=== PATIENT | male | born 2005 | race Caucasian/White ===

== ENCOUNTER 2023-08-12 12:01 | Outpatient (CLI) | payer MEDICAID, SELFPAY ==
--- NOTE | 2023-08-12 12:14 | XR_ITS ---
WS: [id number] Left foot, 3 views, 08/12/2023 Clinical Data: L FOOT PAIN Comparison: None. Findings: No fractures or dislocations are seen. No bone destruction or erosion is noted. The joint spaces and soft tissues are normal. Impression: Negative left foot.
--- NOTE | 2023-08-12 12:14 | XR_ITS ---
WS: [id number] Left ankle, AP and lateral views, 08/12/2023 Clinical Data: L ANKLE PAIN Comparison: Left ankle, 2003 Findings: No fractures or dislocations are seen. The ankle mortise is normal. The talus and calcaneus are unrem arkable. No soft tissue swelling over the medial or lateral malleolus is seen. Impression: Negative left ankle.
== END 2023-08-12 12:02 | disposition home or self-care (01) ==
PROVIDERS: Family Provider Pediatrics Adolescent Medicine; PCP Pediatrics Adolescent Medicine; Visit Provider Family Medicine
DX: M79.672 Pain in left foot (principal)
CPT/HCPCS: 73600; 73630

== ENCOUNTER → 2023-08-16 11:07 | Outpatient (BNVA) | payer MEDICAID, SELFPAY | PROVIDERS: Family Provider Pediatrics Adolescent Medicine; PCP Pediatrics Adolescent Medicine; Visit Provider Podiatrist Foot & Ankle Surgery | DX: S99.911A Unspecified injury of right ankle, initial encounter (principal); M93.271 Osteochondritis dissecans, right ankle and joints of right foot; M76.821 Posterior tibial tendinitis, right leg; W17.89XA Other fall from one level to another, initial encounter | CPT/HCPCS: 73610; 99203 ==

== ENCOUNTER 2023-10-06 16:39 | Outpatient (CLI) | payer MEDICAID, SELFPAY ==
--- NOTE | 2023-10-06 16:45 | MR_ITS ---
WS: [id number] EXAMINATION: MR ankle RT wo con* [id number] ORDER DATE: 10/06/2023 4:55 PM COMPARISON: None. HISTORY: preoperative planning on an OCD and evaluate PT Tendon CONTRAST: None. TECHNIQUE: Axial proton density fat sat, axial T1, sagittal proton density, sagittal STIR, coronal T2 fat sat, and coronal T1 sequences performed. FINDINGS: Osteochondral lesion involving the medial mid talar dome with associated surrounding edema. Osteochon dral lesion measures approximately 6.8 x 11.9 mm. Talar dome is otherwise normal in appearance. Osteo chondral lesion is similar to the prior radiograph. Distal Achilles is normal in appearance. Normal plantar fascia. Normal bone marrow signal in the calc aneus. Normal talonavicular and talocalcaneal articulation. Normal cuboid. Normal medial and lateral malleolus. Deltoid ligament appears intact. ATF appears intact. Normal bone marrow signal in the fifth metacarpal base. Normal navicular and cuneiforms. Normal cuboi d.Tendon split tear involving the peroneal brevis. Peroneal tendons are otherwise normal in appearanc e. Tenosynovitis involving the flexor compartment tendons tibialis posterior, flexor digitorum longus , and flexor hallucis longus. Normal extensor compartment tendons. IMPRESSION: 1. Osteochondral lesion involving the medial aspect of the mid talus with associated unstable fragme nt. Fragment measures approximately 6.8 x 11.9 mm with fluid interposed between the fragment and unde rlying bone. 2. Diffuse edema within the associated talus. 3. Small split tear peroneal brevis. 4. Tenosynovitis involving the flexor compartment tendons. 5. No other acute findings.
== END 2023-10-06 16:40 | disposition home or self-care (01) ==
LOC: RAD 16:39
PROVIDERS: Family Provider Pediatrics Adolescent Medicine; PCP Pediatrics Adolescent Medicine; Visit Provider Podiatrist Foot & Ankle Surgery
DX: M93.271 Osteochondritis dissecans, right ankle and joints of right foot (principal); M76.821 Posterior tibial tendinitis, right leg; R60.0 Localized edema; S86.311A Strain of muscle(s) and tendon(s) of peroneal muscle group at lower leg level, right leg, initial encounter; X58.XXXA Exposure to other specified factors, initial encounter
CPT/HCPCS: 73721

== ENCOUNTER → 2023-10-27 11:09 | Outpatient (BNVA) | payer MEDICAID, SELFPAY | PROVIDERS: PCP Family Medicine; Visit Provider Podiatrist Foot & Ankle Surgery | DX: S99.911D Unspecified injury of right ankle, subsequent encounter; M93.271 Osteochondritis dissecans, right ankle and joints of right foot; M76.821 Posterior tibial tendinitis, right leg; X58.XXXD Exposure to other specified factors, subsequent encounter | CPT/HCPCS: 99213 ==

== ENCOUNTER 2024-03-18 20:26 | Emergency (ER) | payer MEDICAID, SELFPAY ==
[2024-03-18 20:30] VITALS: BP 157/91; PULSE 98; RESP 17; TEMP 36.9; O2SAT 97; BMI 25.0
--- NOTE | 2024-03-18 20:39 | XRR_ITS ---
PROCEDURE INFORMATION: Exam: XR Right Ankle Exam date and time: 03/18/2024 8:51 PM Age: 18 years old Clinical indication: Right; Prior surgery; Surgery date: 1-6 months; Surgery type: Cartilidge repair in nov 2023; Patient HX: C/O diffuse RT ankle pain that started two days ago. History of cartilidge damage to ankle. ; Additional info: Injury TECHNIQUE: Imaging protocol: Radiologic exam of the right ankle. Views: 3 or more views. COMPARISON: MR ankle RT wo con* [id number] 10/06/2023 4:55 PM FINDINGS: Bones/joints: Normal. Soft tissues: Normal. XR/XR ankle RT min 3V* [id number] IMPRESSION: No acute findings.
--- NOTE | 2024-03-18 21:25 | W.ED.EXTPRO ---
HPI - Extremity Problem General: Chief complaint: Extremity Problem,Nontraumatic Stated complaint: right ankle pain Time Seen by Provider: 03/18/24 20:28 History of Present Illness: 18-year-old male patient comes in today for injury to the right ankle. Patient states he was on the ground and went to get up and felt a pop in his right ankle. Since then patient has had difficulty walking on the ankle. Injury occurred this afternoon. Patient is also concerned due to prior surgery to the ankle. Review of Systems General: Reports: 10 or more systems reviewed and unremarkable except in HPI and below Physical Exam Const: COMMON NORMALS: alert HENMT: COMMON NORMALS: normocephalic HEAD & SCALP: normocephalic Neck/C-Spine: COMMON NORMALS: full ROM Resp: COMMON NORMALS: normal respiratory effort Cardio: COMMON NORMALS: regular rate RATE: regular rate Back/Pelvis: COMMON NORMALS: thoracic and lumbar spine normal to inspection Extremity: COMMON NORMALS: full ROM RIGHT LOWER EXTREMITY: Yes foot & digits (Minimal swelling, anterior tenderness) Right ankle: Yes inspection, Yes palpation, Yes ROM and Yes neurovascular exam Neuro: SENSORIUM/ORIENTATION: Yes alert Skin: COMMON NORMALS: turgor normal GENERAL SKIN EXAM: turgor normal Course Vital Signs: Vital signs: Vital Signs Temperature 98.5 F 03/18/24 20:30 Pulse Rate 98 03/18/24 20:30 Respiratory Rate 17 03/18/24 20:30 Blood Pressure 157/91 03/18/24 20:30 Pulse Oximetry 97 03/18/24 20:30 Oxygen Delivery Me thod Room Air 03/18/24 20:30 MDM - Extremity (Nontraumatic) Medical Decision Making 18-year-old male patient comes in today with injury to the right ankle. On exam patient has some mild swelling and no redness, and mild tenderness. Pulses are intact. Sensation is intact. Differential diagnosis includes fracture, sprain, contusion. X-ray of the ankle noted no fracture or dislocation. Reviewed exam with patient with recommendation for treatment and follow-up. Patient reported understanding. XR interpretation done by ED provider, pending radiology final review Discharge Plan Discharge Patient Disposition: Home Clinical Impression: Ankle sprain Qualifiers: Encounter type: initial encounter Involved ligament of ankle: unspecified ligament Laterality: right Qualified Code(s): S93.401A - Sprain of unspecified ligament of right ankle, initial encounter Condition: Stable Prescriptions: No Action prednisone 20 mg tablet 20 mg PO DAILY 5 Days Qty: 5 0RF Discharge Orders: Discharge ED (Routine); Ordered 03/18/24 Ordered By: Leonard Carter Referrals: Dane Alvarado MD [Primary Care Provider] - Discharge Diet: Usual diet Discharge Activity: Increase activity as tolerated Patient Instructions: Ankle Sprain (ED) Activity Restrictions/Additional Instructions: Home and rest. Activity as tolerated. Follow-up with primary care for further instructions. Coding Level of Care Code ED [employer] for Roel Reese
[2024-03-18 21:34] VITALS: RESP 16
== END 2024-03-18 21:36 | disposition home or self-care (01) ==
PROVIDERS: Emergency Provider Nurse Practitioner Family; PCP Family Medicine
DX: S93.401A Sprain of unspecified ligament of right ankle, initial encounter (principal); X50.9XXA Other and unspecified overexertion or strenuous movements or postures, initial encounter
CPT/HCPCS: 73610; 99283

== ENCOUNTER 2025-08-07 16:49 | Outpatient (CLI) | payer MEDICAID, SELFPAY ==
--- NOTE | 2025-08-07 16:55 | XR_ITS ---
WS: [id number] Right ankle, 3 views, 08/07/2025 Clinical Data: RIGHT ANKLE PAIN Comparison: Right ankle, 03/18/2024 Findings: No fractures or dislocations are seen. The ankle mortise is normal. The talus and calcaneus are unremarkable. No soft tissue swelling over the medial or lateral malleolus is seen. XR/XR ankle RT min 3V* [id number] Impression: Negative right ankle.
--- NOTE | 2025-08-07 16:55 | XR_ITS ---
WS: [id number] Left foot, 3 views, 08/07/2025 Clinical Data: LEFT FOOT PAIN Comparison: Left foot, 08/12/2023 Findings: No fractures or dislocations are seen. No bone destruction or erosion is noted. The joint spaces and soft tissues are normal. XR/XR foot LT min 3V* [id number] Impression: Negative left foot.
== END 2025-08-07 16:50 | disposition home or self-care (01) ==
PROVIDERS: PCP Family Medicine; Visit Provider Family Medicine
DX: M79.675 Pain in left toe(s) (principal); M25.571 Pain in right ankle and joints of right foot
CPT/HCPCS: 73610; 73630